=== PATIENT | male | born 1980 | race American Indian/Alaskan Native ===

== ENCOUNTER 2018-11-24 20:29 | Emergency (ER) | payer SELFPAY ==
--- NOTE | 2018-11-24 21:47 | XRay Report ---
PROCEDURE: XR TIBIA FIBULA 2V RT TECHNIQUE: Right tibia fibula 2 views HISTORY: Right calf pain COMPARISONS: FINDINGS: No fracture identified. No dislocation seen. Joint spaces are within normal limits. No radiopaque for eign bodies are observed. IMPRESSION: Negative. No acute abnormality seen. This document is electronically signed by Ziggy Starkey MD., November 24 2018 09:45:22 PM ET
[2018-11-24] MEDS ORDERED: TORADOL IM ONE (23:48)
--- NOTE | 2018-11-24 23:53 | Emergency Department Report ---
ED Extremity Problem HPI - General Chief complaint: Extremity Injury, Lower Stated complaint: RIGHT LOWER LEG PAIN Time Seen by Provider: 11/24/18 22:50 Source: patient Mode of arrival: Ambulatory Limitations: No Limitations - History of Present Illness Initial comments: Pt is a 38 yo male who presents to the ED with c/o right calf pain that began earlier today. He states that he heard a popping sound. Pt states he was at the gym and was running back and forth when he felt the popping sensation. He states he has not been ambulatory since the incident secondary to pain. he states that his calf feels tight. He denies any numbness or weakness. he denies any prior injury. no PMHx. no allergies to meds. - Related Data Previous Rx's Medication Instructions Recorded Last Taken Type Cyclobenzaprine [Flexeril] 10 mg PO QHS PRN #10 tablet 11/24/18 Unknown Rx Ibuprofen [Motrin 800 MG tab] 800 mg PO Q8HR PRN #14 tablet 11/24/18 Unknown Rx Allergies Allergy/AdvReac Type Severity Reaction Status Date / Time No Known Allergies Allergy Unverified 11/24/18 20:33 ED Review of Systems ROS: Stated complaint: RIGHT LOWER LEG PAIN Other details as noted in HPI Comment: All other systems reviewed and negative ED Past Medical Hx - Past Medical History Previous Medical History?: No - Surgical History Past Surgical History?: No - Social History Smoking Status: Never Smoker Substance Use Type: None - Medications Home Medications: Home Medications Medication Instructions Recorded Confirmed Last Taken Type Cyclobenzaprine [Flexeril] 10 mg PO QHS PRN #10 tablet 11/24/18 Unknown Rx Ibuprofen [Motrin 800 MG tab] 800 mg PO Q8HR PRN #14 tablet 11/24/18 Unknown Rx ED Physical Exam - General Limitations: No Limitations General appearance: alert, in no apparent distress - Head Head exam: Present: atraumatic, normocephalic - Eye Eye exam: Present: normal appearance, PERRL - Extremities Exam Extremities exam: Present: other (TTP over the right calf, no TTP of the tib ia/fibula, no TTP of the ankle, foot, or digits, pt has FROM of the right ankle, achilles is intact, no obvious deformity, small amount edema to the calf, no obvious ecchymosis to the calf, neurovascularly intact) - Neurological Exam Neurological exam: Present: alert, oriented X3 - Psychiatric Psychiatric exam: Present: normal affect, normal mood - Skin Skin exam: Present: warm, dry, intact ED Course Vital Signs 11/24/18 11/24/18 11/25/18 20:32 20:57 01:19 Temperature 98.0 F 98 F Pulse Rate 72 70 Respiratory 18 18 20 Rate Blood Pressure 194/76 194/76 Blood Pressure [Right] O2 Sat by Pulse 98 Oximetry 11/25/18 01:34 Temperature 98.5 F Pulse Rate 52 L Respiratory 16 Rate Blood Pressure Blood Pressure 169/69 [Right] O2 Sat by Pulse 98 Oximetry ED Medical Decision Making - Radiology Data Radiology results: report reviewed PROCEDURE: XR TIBIA FIBULA 2V RT TECHNIQUE: Right tibia fibula 2 views HISTORY: Right calf pain COMPARISONS: FINDINGS: No fracture identified. No dislocation seen. Joint spaces are within normal limits. No radiopaque foreign bodies are observed. IMPRESSION: Negative. No acute abnormality seen. This document is electronically signed by Ziggy Shi MD., November 24 2018 09:45:22 PM ET Transcribed By: ELISA Dictated By: VINITA SHI MD Electronically Authenticated By: VINITA SHI MD Signed Date/Time: 11/24/182146 - Medical Decision Making Pt is a 38 yo male who presents to the ED with c/o right calf pain that began earlier today. He states that he heard a popping sound. Pt states he was at the gym and was running back and forth when he felt the popping sensation. He states he has not been ambulatory since the incident secondary to pain. he states that his calf feels tight. He denies any numbness or weakness. he denies any prior injury. no PMHx. no allergies to meds. on examination pt has TTP over the right calf, no TTP of the tibia/fibula, no TTP of the ankle, foot, or digits, pt has FROM of the right ankle and foot, achilles is intact, no obvious deformity, small amount edema to the calf, no obvious ecchymosis to the calf, neurovascularly intact. pt symptoms and examination consistent with possible calf strain. pt given anti-inflammatory and muscle relaxer. discussed to take as prescribed. do not drive or operate heavy machinery while taking muscle relaxer due to potential for drowsiness. pt wrapped with acewrap and given crutches. discussed with pt to follow up with Dr. Mata, orthopedic in the next 2-3 days. May use ice, rest, elevation. return to the emergency room for any new or worsening symptoms. Critical care attestation.: If time is entered above; I have spent that time in minutes in the direct care of this critically ill patient, excluding procedure time. ED Disposition Clinical Impression: Right calf pain Disposition: TO HOME OR SELFCARE Is pt being admited?: No Does the pt Need Aspirin: No Condition: Stable Instructions: Muscle Strain (ED) Additional Instructions: Please follow up with Dr. Mata, orthopedic in the next 2-3 days. May use ice, rest, elevation. use acewrap and crutches until evaluated by orthopedic. return to the emergency room for any new or worsening symptoms. Prescriptions: Cyclobenzaprine [Flexeril] 10 mg PO QHS PRN #10 tablet PRN Reason: Muscle Spasm Ibuprofen [Motrin 800 MG tab] 800 mg PO Q8HR PRN #14 tablet PRN Reason: Pain, Moderate (4-6) Referrals: KEITH BLANK MD [Primary Care Provider] - 2-3 Days ANITA MATA MD [Staff Physician] - 2-3 Days Time of Disposition: 23:57 Print Language: [place]
[2018-11-25 01:35] VITALS: BP 169/69
== END 2018-11-25 01:34 | disposition home or self-care (01) ==
LOC: ED 20:29
DX: M79.661 Pain in right lower leg (principal)
CPT/HCPCS: 73590; 96372; 99283; J1885